=== PATIENT | female | born 1990 | race Caucasian/White ===

== ENCOUNTER 2020-04-28 16:43 | Inpatient (IN) | payer OTHER ==
[~2020-04-28] VITALS: Ht 152.4 cm; Wt 104.3 kg
[2020-04-28] MEDS ORDERED: HYDR-3980 MT (17:08)
[2020-04-28 17:32] LABS: BASOPHILS # (AUTO) 0.1 /CMM (0.0-0.2); BASOPHILS % (AUTO) 0.8 % (0.0-2.0); EOSINOPHILS % (AUTO) 1.8 % (0.0-6.0); HEMATOCRIT 39 % (33-45); HEMOGLOBIN 13.4 g/dL (11.5-14.8); LYMPHOCYTES # (AUTO) 1.7 /CMM (0.8-4.8); MEAN CORPUSCULAR HGB CONC 35 g/dl (31.0-36.0); MEAN CORPUSCULAR VOLUME 92 fL (82-100); MONOCYTES # (AUTO) 0.4 /CMM (0.1-1.30); MONOCYTES % (AUTO) 6.7 % (2.0-12.0); NEUTROPHILS # (AUTO) 3.8 /CMM (1.8-8.9); NEUTROPHILS % (AUTO) 62.7 % (43.0-81.0); PLATELET COUNT (AUTO) 310 /CMM (150-450); RED BLOOD CELL COUNT(AUTO) 4.26 MIL/uL (4.0-5.2)
[2020-04-28 17:42] LABS: CALCIUM, SERUM 8.6 mg/dL (8.5-10.1); CREATININE 0.7 mg/dL (0.6-1.3); POTASSIUM 3.8 mmol/L (3.5-5.1)
[2020-04-28 17:54] LABS: ALBUMIN 3.5 g/dL (3.4-5.0); BILIRUBIN,DIRECT 0.1 mg/dL (0.0-0.2); BILIRUBIN,TOTAL 0.4 mg/dL (0.2-1.0); TOTAL PROTEIN, SERUM 7.5 g/dL (6.4-8.2)
[2020-04-28] MEDS ORDERED: HYDROCODONE/APAP 5/325MG TABLET ONE (19:17)
--- NOTE | 2020-04-28 19:22 | NUR ---
PT AAOX4, PT HAS NO MEDICAL COMPLAINTS AT THIS TIME. PT CONNECTED TO THE MONITOR AND POX. PT NOT IN RESPIRATORY DISTRESS. SKIN INTACT.
[2020-04-28] MEDS ORDERED: HYDROCODONE/APAP 5/325MG TABLET PO ONE (19:30)
[2020-04-28 23:03] LABS: BILIRUBIN,URINE Negative (NEGATIVE); COLOR,URINE YELLOW (YELLOW); LEUKOCYTE ESTERASE ,URINE Negative (NEGATIVE); NITRITE, URINE Negative (NEGATIVE); PH,URINE 7.5 (5.0-8.0); PROTEIN,URINE Negative (NEGATIVE); UGLUCOSE Negative (NEGATIVE)
--- NOTE | 2020-04-28 23:33 | NUR ---
BED ASSIGNMENT 307-1
--- NOTE | 2020-04-28 23:55 | NUR ---
REPORT GIVEN TO ANURADHA VANN FOR MELONY
[2020-04-29 00:05] VITALS: BP 123/73
--- NOTE | 2020-04-29 00:15 | NUR ---
KALYAN RECEIVED FROM ER VIA FLAQUITO A 29 Y/O FEMALE WITH DX OF CLOSED LEFT ANKLE FRACTURE. ALERT/ORIENTED X4 LEFTLEG WITH SPLINT. NWB. PER ER REPORT PATIENT TO HAVE SURGERY UNDER DR. SCHUMACHER IN AM. ORIENTED TO ROOM FACILITIES, SAFETY PRECAUTIONS EMPHASIZED WELL UNDERSTOOD. PLAN OF CARE AND MEDICATION REGIMEN DISCUSSED APPEARS TO UNDERSTAND. WILL KEEP NPO FOR NOW. NO ADMISSION ORDERS YET. WILL FOLLOW UP.
--- NOTE | 2020-04-29 00:15 | NUR ---
PT TRANSFERRED TO ROOM IN STABLE CONDITION
--- NOTE | 2020-04-29 00:25 | NUR ---
MSRN PLACED CALL TO [facility] DR. SCHUMACHER, PER EX CHANGE DR. MARSH SILO ERECTOR.
--- NOTE | 2020-04-29 01:10 | NUR ---
MSRBailey PLACED ANOTHER CALL TO DR MARSH PER EXCHANGE WILL TRY TO REACH HIM. INFORMED RAIL MAINTENANCE WORKER OF NO RETURN CALL, UNABLE TO OBTAIN ADMISSION ORDERS. PER RAIL MAINTENANCE WORKER PATIENT IS SCHEDULED FOR SURGERY AT 10 AM.
--- NOTE | 2020-04-29 01:30 | NUR ---
MSRN CHECKED PATIENT, STATED LEFT ANKLE PAIN TOLERABLE FOR NOW. STATES DOES NOT HURT MUCH WHILE RESTING. ICEPACKS PROVIDED. REMINDED TO CALL STAFF FOR FURTHER DISCOMFORTS OR ASSISTANCE. OFFERED BSC, DECLINED, STATED ABLE TO GO RESTROOM VIA WHEELCHAIR. INSTRUCTED TO CALL STAFF, SAFETY PRECAUTIONS EMPHASIZED. CONTINUED.
--- NOTE | 2020-04-29 02:10 | NUR ---
KALYAN PLACED ANOTHER CALL TO OR[facility] EXCHANGE WILL TRY AGAIN TO REACH MD. TRIED TO CALL HOSPITALIST AT THIS TIME, AWAITING,
--- NOTE | 2020-04-29 03:30 | NUR ---
MSRN PRIMARY NURSE OF PATIENT SPOKE TO DR. EATON, WAS TOLD WILL ADMIT PATIENT.
[2020-04-29] MEDS ORDERED: ZOLPIDEM TARTRATE 5 MG TABLET PO PRN (04:00)
[2020-04-29] MEDS ORDERED: Z GUARD REMEDY 2 OZ OINT TP PRN (04:00)
[2020-04-29] MEDS ORDERED: HYDROCODONE/APAP 10/325MG TABLET PO PRN (04:00)
[2020-04-29] MEDS ORDERED: MORPHINE SULFATE INJ 2 MG/ML DISP.SYRIN IV PRN (04:00)
[2020-04-29] MEDS ORDERED: MAGNESIUM HYDROXIDE 30 ML UDC PO PRN (04:00)
[2020-04-29] MEDS ORDERED: ONDANSETRON HCL/PF 4 MG/2 ML VIAL IVP PRN (04:00)
[2020-04-29] MEDS ORDERED: ACETAMINOPHEN 325 MG TABLET PO PRN (04:00)
[2020-04-29] MEDS ORDERED: MAG HYDROX/AL HYDROX/SIMETH 30 ML UDC PO PRN (04:00)
[2020-04-29 08:09] VITALS: BP 108/70
[2020-04-29] MEDS ORDERED: ANESTHESIA TRAY IN PYXIS 1 EA TRAY MC ONE (08:39)
[2020-04-29] MEDS ORDERED: BUPIVACAINE 0.5 % PF 150 MG/30 ML VIAL ONE (08:39)
[2020-04-29] MEDS ORDERED: BUPIVACAINE 0.25% 75 MG/30 ML VIAL ONE (08:40)
[2020-04-29] MEDS ORDERED: BACITRACIN 50000 UNITS/VIAL ONE (08:49)
[2020-04-29] MEDS ORDERED: FENTANYL PF 250MCG/5ML AMPUL ONE (09:15)
[2020-04-29] MEDS ORDERED: FENTANYL PF 100MCG/2ML AMPUL ONE ×2 (09:15→12:27)
[2020-04-29] MEDS ORDERED: MIDAZOLAM HCL 2 MG/2ML VIAL ONE (09:15)
[2020-04-29] MEDS ORDERED: FAMOTIDINE/PF INJ 20 MG/2 ML VIAL IV ONE (09:16)
[2020-04-29] MEDS ORDERED: HYDROMORPHONE INJ 2 MG/ML DISP.SYRIN ONE (09:16)
[2020-04-29] MEDS ORDERED: HYDROMORPHONE 1 MG/1 ML DISP.SYRIN ONE (12:22)
[2020-04-29 13:30] VITALS: BP 113/62
[2020-04-29 13:45] VITALS: BP 108/60
--- NOTE | 2020-04-29 13:59 | NUR ---
MS/RN NOTE DISCHARGE HOME ORDERED OBTAINED FROM DR CARDOZA AFTER DR SCHUMACHER CLEARED FOR DISCHARGE. THE ORDER IS NOTED AND CARRIED OUT.
[2020-04-29 14:00] VITALS: BP 108/62
[2020-04-29 14:15] VITALS: BP 111/60
--- NOTE | 2020-04-29 15:42 | NUR ---
MS/RN NOTE PATIENT IS ALERT AND ORIENTED X3. DENIES SOB. PATIENT IS IN ROOM AIR AND OXYGEN SATURATION LEVEL IS AT 99%. RESPIRATION REGULAR AND UNLABORED. DENIES PAIN. THE PATIENT IS IN NO APPARENT DISTRESS. DISCHARGE EDUCATION PROVIDED AND HE VERBALIZED UNDERSTANDING. IV LINE REMOVED FROM LAC, NO BLEEDING NOTE, COVERED WITH 2X2. PATIENT GOT PICKED UP BY GIRLFRIEND GOING HOME.
== END 2020-04-29 15:30 | disposition home or self-care (01) | DRG 313 ==
LOC: ER 16:54 → TRANSITION 21:09 → MED 23:48
PROVIDERS: ADMIT Internal Medicine; ATTEND Internal Medicine
PROC: 0QSK04Z Reposition Left Fibula with Internal Fixation Device, Open Approach (ICD-10-PCS; principal; 2020-04-28)
PROC: 0SSG0ZZ Reposition Left Ankle Joint, Open Approach (ICD-10-PCS; 2020-04-28)
DX: S82.892A Other fracture of left lower leg, initial encounter for closed fracture (principal); W19.XXXA Unspecified fall, initial encounter; Y93.01 Activity, walking, marching and hiking; Y92.9 Unspecified place or not applicable
CPT/HCPCS: 36415; 80048-TC; 80076-TC; 84703-TC; 85025-TC; 85730-TC; 86850-TC; 87081-TC; A6402; C1713; C9803; G0378; J0690; J1170; J1885; J2250; J2405; J2704; J2765; J3010; J3490